=== PATIENT | female | born 1965 | race Caucasian/White ===

== ENCOUNTER → 2017-02-20 | Outpatient (CLI) | payer OTHER ==
--- NOTE | ~2017-02-20 | CR230 ---
[facility] A Service of [facility] RADIOLOGY TEXT RESULTS PATIENT: OMAIRA PINTO LOCATION: [facility] : 61 UNIT #: [id number] AGE: [address]: Brittney Hoyt APRN SEX: F ORDER DR: [id number] [facility] [address] [place], [place] [address] [id number] O MR#: [id number] Acc #: [id number] NAME: OMAIRA PINTO : 1965 SEX: F STUDY DATE/TIME: 02/20/2017 16:38 UNIT: [facility] ROOM: STUDY DESCRIPTION: CR Shoulder Min 2 View Rt Attending Physician: Brittney Hoyt Aprn Referring Physician: Brittney Hoyt Aprn Ordering Physician: Brittney Hoyt Aprn Primary Care Physician: Kim Min M.D. MEDICAL IMAGING REPORT This report is preliminary unless electronic signature is present EXAM Right shoulder, 3 views, 02/20/2017. HISTORY Right shoulder pain and decreased range of motion for 2 weeks. No known injury. FINDINGS Three views of the right shoulder demonstrate no fracture. There is degenerative change with osteophytic spurring along the medial aspect of the right humeral head. The right acromioclavicular joint is intact. The bones are osteopenic. There is no soft tissue abnormality. IMPRESSION Degenerative change and osteopenia. No acute abnormality. Dictated by... Jorje Mcallister M.D. THIS IS AN ELECTRONICALLY VERIFIED REPORT Jorje Mcallister M.D. at 02/21/2017 2:26 PM ALIYAH/ramos TD: 02/20/2017 20:32 JOB #: [id number] MEDICAL IMAGING REPORT Page 1 of 1 COPY
== END | disposition home or self-care (01) ==
LOC: CRAD 16:22
DX: M25.511 Pain in right shoulder (principal); M19.011 Primary osteoarthritis, right shoulder; M85.811 Other specified disorders of bone density and structure, right shoulder
CPT/HCPCS: 73030

== ENCOUNTER → 2017-04-30 | Outpatient (CLI) | payer OTHER ==
--- NOTE | ~2017-04-30 | MR165 ---
[facility] A Service of [facility] RADIOLOGY TEXT RESULTS PATIENT: OMAIRA PINTO LOCATION: [facility] : 61 UNIT #: [id number] AGE: [address]: Joy Nieto MD SEX: F ORDER DR: [id number] [facility] [address] [place], [place] [address] [id number] O MR#: [id number] Acc #: [id number] NAME: OMAIRA PINTO : 1965 SEX: F STUDY DATE/TIME: 04/30/2017 9:47 UNIT: [facility] ROOM: STUDY DESCRIPTION: MR Shoulder Wo Contrast Rt Attending Physician: Joy Nieto M.D. Referring Physician: Joy Nieto M.D. Ordering Physician: Joy Nieto M.D. Primary Care Physician: Kim Min M.D. MRI CENTER REPORT This report is preliminary unless electronic signature is present. EXAM Right shoulder MRI without contrast, 04/30/2017. HISTORY 51-year-old female with right shoulder pain for 5 months. No specific injury. No prior right shoulder surgery. COMPARISON Right shoulder x-rays, 09/15/2008 and 02/20/2017. TECHNIQUE Routine unenhanced multiplanar, multisequence high field MR imaging of the right shoulder was performed. Motion reduction techniques were maximized. FINDINGS There is mild supraspinatus and infraspinatus tendinopathy. No evidence of tear. Teres minor and subscapularis tendons are intact. Long biceps tendon is intact and well positioned in the bicipital groove. No evidence of a labral tear. Glenoid articular cartilage is intact. There is high-grade chondromalacia along the central articular surface of the humeral head. Small marginal osteophytes along the inferior humeral head-neck junction. There is a small to moderate joint effusion with associated synovial proliferation. Mild degenerative change of the acromioclavicular joint. No subacromial spur. No inflammation of subacromial/subdeltoid bursa. There is mild reactive subchondral marrow edema in the central humeral head. Remainder of the bone marrow signal is within expected limits. Visualized musculature is unremarkable. IMPRESSION [facility] A Service of [facility] & [facility] RADIOLOGY TEXT RESULTS PATIENT: OMAIRA PINTO LOCATION: [facility] : 61 UNIT #: [id number] AGE: [address]: Joy Nieto MD SEX: F ORDER DR: 1. Moderate glenohumeral arthrosis, detailed above. This is associated with a small to moderate joint effusion and synovial proliferative changes in the joint. 2. Mild supraspinatus and infraspinatus tendinopathy. No evidence of a rotator cuff tear. 3. No significant labral pathology. 4. Mild acromioclavicular joint arthrosis. Dictated by... Tony Cervantes M.D. THIS IS AN ELECTRONICALLY VERIFIED REPORT Tony Cervantes M.D. at 05/01/2017 10:06 AM JOANNA/herb TD: 04/30/2017 16:06 JOB #: [id number] MRI CENTER REPORT Page 1 of 1 COPY
== END | disposition home or self-care (01) ==
LOC: CMRI 09:23
DX: M75.81 Other shoulder lesions, right shoulder (principal); M19.011 Primary osteoarthritis, right shoulder
CPT/HCPCS: 73221